=== PATIENT | female | born 1965 | race Caucasian/White ===

== ENCOUNTER 2016-10-10 00:21 | Emergency (ER) | payer OTHER ==
[~2016-10-10] VITALS: Ht 162.6 cm; Wt 98.5 kg
[~2016-10-10 00:21] MED LIST: CYCL-259 PO; IBUP-1050 PO; OXYC-57 PO
[2016-10-10 00:23] VITALS: TEMP 36.7; Ht 162.6 cm; Wt 98.5 kg
[2016-10-10] MEDS ORDERED: KETOROLAC TROMETHAMINE 60 MG/2 ML VIAL IM STA (00:44)
[2016-10-10] MEDS ORDERED: TROLAMINE SALICYLATE 10% CRM 255 APPLN/85 GM TUBE EXT STA (00:45)
[2016-10-10] MEDS ORDERED: PRED50TA PO (00:57)
[2016-10-10] MEDS ORDERED: CYCL10TA6 PO (01:01)
[2016-10-10 01:08] VITALS: BP 107/87; PULSE 110; O2SAT 96
--- NOTE | 2016-10-10 02:03 | EMERGENCY ROOM VISIT NOTE ---
History First contact with patient: 00:27 Chief Complaint: BACK PAIN Stated Complaint: BACK PAIN History of Present Illness The patient is a 51 year old female who presents to the Emergency Room with complaints of low back pain described as aching, ranging in severity 7 out of 10 that is worse with movement and better with rest for the past few days. Patient had a history of back pain for many years and follows with orthopedic spine in [place]. She's had back surgery and neck surgery in the past. She states she's done well steroids before and is requesting this now. Patient denies loss of bowel or bladder control, saddle anesthesia, fever, chills, IV drug abuse, leg weakness, numbness, tingling, abdominal pain. She is tolerate by mouth fluids and food. No injury to the area. Review of Systems See HPI for pertinent positives & negatives. A total of 10 systems reviewed and were otherwise negative. Past Medical/Surgical History Back pain, back surgery, neck surgery Social History Smoking Status: Current Every Day Smoker Alcohol Use: occasionally Drug Use: none Marital Status: , in relationship Occupation Status: employed Current/Historical Medications Scheduled Prednisone (Prednisone), 50 MG PO DAILY Scheduled PRN Cyclobenzaprine Hcl (Flexeril), 10 MG PO BID PRN for Muscle Spasms Allergies Coded Allergies: No Known Allergies (Unverified , 10/10/16) Physical Exam Vital Signs Date Time Temp Pulse Resp B/P Pulse Ox O2 Delivery O2 Flow Rate FiO2 10/10/16 01:08 110 18 107/87 96 Room Air 10/10/16 00:23 36.7 118 20 150/76 96 Room Air Pain Rating (0-10): 5.0 Physical Exam VITALS: Vitals are noted on the nurse's note and reviewed by myself. Vital signs stable. GENERAL: Pleasant female, in no acute distress, nondiaphoretic, well-developed well-nourished. SKIN: Capillary reflex less than 2 seconds. HEENT: Normocephalic. PERRLA. EOMI. Nares patent. Mucous membranes moist. Neck is supple without nuchal rigidity. HEART: Regular rate and rhythm without murmurs gallops or rubs. LUNGS: Clear to auscultation bilaterally without wheezes, rales or rhonchi. No retractions or accessory muscle use. ABDOMEN: Positive bowel sounds x 4. Normal tympanic percussion. Soft, nontender, without masses or organomegaly. Herrera sign negative. No guarding or rebound tenderness. MUSCULOSKELETAL: No gross musculoskeletal defects. No thoracic or lumbar tenderness on exam. Negative straight leg raise. Patient can walk on toes and heels. NEURO: Patient was alert and oriented to person place and time. Normal sensation to light and sharp touch. Deep tendon reflexes 2+ patella bilaterally. No focal neurological deficits. Medical Decision & Procedures Medications Administered Medications (Trade) Dose Ordered Sig/Lars Route Start Time Stop Time Status Last Admin Dose Admin Ketorolac Tromethamine (Toradol Inj) 60 mg NOW STAT IM 10/10/16 00:44 10/10/16 00:45 DC 10/10/16 00:50 60 MG Prednisone (PredniSONE TAB) 60 mg NOW STAT PO 10/10/16 00:45 10/10/16 00:47 DC 10/10/16 00:50 60 MG ED Course Prior records/ancillary studies reviewed. Triage Nursing notes reviewed. The patient's history was concerning for back pain. Differential diagnosis: Etiologies such as musculoskeletal, disc herniation, fracture, aortic disease, metastatic disease, cord compression, discitis, infection, renal colic, gastrointestinal, acute exacerbation of chronic back pain, sciatica, cauda equina, as well as others were entertained. Physical findings: As above. No focal neurologic findings noted. ER treatment provided: Toradol, prednisone On reassessment the patient felt better. Diagnostics interpreted by me: Deferred This appears to be consistent with lumbar strain. Patient is long-standing history of back pain and symptoms feel similar. She requested a short supply steroids for her exacerbation as she's done well with this in the past. I felt this is reasonable. She is advised to follow-up with her spine doctor in a few days or here in the ER sooner for severe pain, inability to walk, worsening signs or symptoms or as needed. Patient was neurovascularly and neurologically intact. She was able to ambulate without difficulties. The patient's physical examination and detailed history did not reveal any red flags for back pain such as those listed in the differential diagnosis. Therefore advanced diagnostics and consultations were felt to be unwarranted. By the evaluation outlined above emergent etiologies such as fracture, aortic disease, metastatic disease, infection, renal colic, gastrointestinal, cord compression, cauda equina, as well as others were deemed relatively unlikely. The pt informed about the findings as listed above. All questions were answered and pleased with the treatment. Return instructions were outlined and the patient was discharged in stable condition. Outpatient prescription management: prednisone Referral: The patient was referred back to Ortho spine/ primary care physician for follow- up in 2 to 3 days for a recheck of the current condition. Medical Decision As above Impression Primary Impression: Lumbar strain Departure Information Dispostion Home / Self-Care Condition GOOD Prescriptions Prednisone (Prednisone) 50 Mg Tab 50 MG PO DAILY for 4 Days, #4 TAB Prov: Rebecca Cormier .JOHNIE 10/10/16 Forms HOME CARE DOCUMENTATION FORM, IMPORTANT VISIT INFORMATION Patient Instructions Back Pain - [facility], [facility] Additional Instructions Prednisone 50mg: Once daily until the prescription is finished. It is best to take this earlier in the day as some patients note occasional difficulty falling asleep when taken in the late evening. Ibuprofen(Motrin, Advil) may be used for fever or pain. Use 600mg every six hours as needed. Take with food. Avoid using more than 2400mg in a 24 hour period. Do not use 2400mg per day for more than three consecutive days without physician direction. Prolonged inappropriate use can lead to stomach upset or ulcers. This medication can be taken if you need to drive, work, or perform activities which may be dangerous when taking narcotic pain medication. (AND/OR) Acetaminophen(Tylenol) may be used for fever or pain. Use 1000mg every six hours as needed. Avoid using more than 3000mg in a 24 hour period. This medication can be taken if you need to drive, work, or perform activities which may be dangerous when taking narcotic pain medication. Rest and avoid heavy lifting until your symptoms resolve and then gradually return to full activity. A good rule of thumb is if it hurts your back to perform a certain activity, then it should be avoided until you are healthy again. A heating pad, warm compresses, or a hot shower may help with tight muscles and can be done several times a day as needed. Continue current medications. Return to the ER immediately for any numbness, tingling, severe pain, loss of control of your bowels or bladder, inability to walk, or as needed. Follow up with your primary care physician/orthopedics spine within 3-5 days for a recheck of your current condition. Problem Qualifiers Primary Impression: Lumbar strain Encounter type: initial encounter Qualified Codes: S39.012A - Strain of muscle, fascia and tendon of lower back, initial encounter
== END 2016-10-10 01:10 | disposition home or self-care (01) ==
LOC: C.EDB 00:22
DX: S39.012A Strain of muscle, fascia and tendon of lower back, initial encounter (principal); M54.9 Dorsalgia, unspecified; X58.XXXA Exposure to other specified factors, initial encounter; F17.210 Nicotine dependence, cigarettes, uncomplicated; Z98.890 Other specified postprocedural states